=== PATIENT | male | born 1960 | race Caucasian/White ===

== ENCOUNTER 2016-09-11 09:46 | Inpatient (IN) | payer BC, MEDICARE ==
--- NOTE | ~2016-09-11 | CN ---
Consultation Report [facility] [address] [place]. [address] NAME: BRANDY ALMEIDA STEFAN : 60 STATUS : ADM IN PAT#: [id number] AGE: 55 ADM/REG DATE : 09/11/16 MR#: [id number] REPORT SERV DATE: 09/12/16 DICTATED BY: FAUSTO WANG DATE: 09/11/16 REPORT STATUS : Draft TRANSCRIBED BY: MODL DATE: 09/11/16 NEPHROLOGY CONSULT NOTE DATE OF CONSULTATION: HISTORY OF PRESENT ILLNESS: Mr. Almeida is a 55-year-old white male, diabetic for 30 plus years, admitted to the hospital now with unusual body movements, more of a tremor that started after dialysis on yesterday. Interestingly, last two weeks as he went up on , 09/02/2016 to [place] to have an osteochondroma removed from his right ear, was placed on clindamycin after the surgery and has done well. He still has some mild facial numbness on the right and still has very poor hearing on the right ear. Dialyzed at Tuesday in clinic 09/03/2016 and then he dialyzes on Tuesday, Tuesday, and Tuesday. Last week in this clinic, when had a balloon angioplasty of his left arm AV fistula at our access center. No general anesthesia. Then at dialysis on Tuesday, he felt well, drove himself there, had a good dialysis, went back home, and got home about 4 o'clock and shortly thereafter, started developing a tremor. The tremor initially thought was something he was doing, but it was uncontrollable and his started noticing it. He was tired enough after dialysis. He was able to lay down and fall asleep, but on Tuesday, he woke up with the tremors. His had felt him tremor all night, and they decided to come and have it evaluated. Two surgeries a week apart, one with general anesthesia, the other one with local this and his tremor started today after second procedure. His new medications are Cleocin, which he has taken for about eight days and ibuprofen which he started three days ago after he quit taking his hydrocodone 7.5/325, which he was taken three of four day, until that time. ALLERGIES: HE IS ALLERGIC TO LISINOPRIL, ALLERGIC TO AMLODIPINE. MEDICATIONS: His home medications are: DICTATION ENDS HERE SP/SHEELA Fausto Wang M.D. / [id number] CC: Lenny Bradley MD
--- NOTE | ~2016-09-11 | CN ---
Consultation Report [facility] [address] [place]. [address] NAME: BRANDY DAVIES STEFAN : 60 STATUS : ADM IN PAT#: [id number] AGE: 55 ADM/REG DATE : 09/11/16 MR#: [id number] REPORT SERV DATE: 09/12/16 DICTATED BY: FAUSTO WANG DATE: 09/11/16 REPORT STATUS : Draft TRANSCRIBED BY: MODAdia DATE: 09/11/16 DATE OF CONSULTATION: CONTINUATION HISTORY OF PRESENT ILLNESS: A 55-year-old end-stage renal disease patient of [facility] on Tuesday, Tuesday, Tuesday. Dialyzed Tuesday, drove himself home, felt some uncontrollable twitching in his both legs and arms, was tired enough that he was able to go to sleep, but this Tuesday morning woke up with continued twitching, came to the emergency room. 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 PAST MEDICAL HISTORY: Other significant past medical history is fracture of his heel in his left foot, which later became infected with MRSA, which prompted vancomycin therapy and ended up finishing off his kidneys, which he ended up on dialysis at that time. History of gastric bypass many years ago; kidney cancer with removal of half his left kidney in the past; bursitis of the elbows; vitrectomy on one eye and cataract surgery on both; appendectomy; stroke four years ago in December of 2012 in [place], [place]; MRSA of his left foot and his right ear in the past, treated with vancomycin both times; diabetes mellitus for 30 years, on insulin pump; and end-stage renal disease, which initiated on dialysis in September 2015, but developed a cloudy PD bag and had to switch from peritoneal dialysis to hemodialysis, attempted again in February of 2016, but then the port was removed and put back on hemodialysis towards the end of the year. REVIEW OF SYSTEMS: No fever or chills. Hearing loss on the right ear, which is chronic. No vomiting, but has been nauseated today. No diarrhea. His tremor which started about 4:00 p.m. central time on 09/10/2016 has persisted and no problems with hemodialysis. He has had no trouble with mentation, but right now, he feels he could not drive and could not walk because of his tremor. PHYSICAL EXAMINATION: VITAL SIGNS: Blood pressure 149/90, heart rate 87, respirations 27, and temperature afebrile. GENERAL: Alert and oriented x3. Good historian. His is at bedside confirming this. HEENT: Unremarkable except surgery on his right ear and decreased hearing on that side. NECK: Without bruits. CHEST: His lungs are clear. CARDIOVASCULAR: Without murmur, gallops, or rubs. ABDOMEN: Soft and benign. Bowel sounds are present. EXTREMITIES: Left upper arm AV fistula with good bruit and thrill, recently ballooned. Nonfocal neurological exam, but he is twitching with obvious uncontrollable tremor in both sides, right arm is not twitching as much as his left arm. He is twitching in his leg same Consultation Report [address] [place]. [address] NAME: BRANDY DAVIES : 60 STATUS : ADM IN [facility]#: [id number] AGE: 55 ADM/REG DATE : 09/11/16 MR#: [id number] REPORT SERV DATE: 09/12/16 DICTATED BY: FAUSTO WANG DATE: 09/11/16 REPORT STATUS : Draft TRANSCRIBED BY: SHEELA DATE: 09/11/16 time, when the twitch of his leg is more of an extension movement. LABORATORY DATA: Labs show sodium 142, potassium 3.9, chloride 101, CO2 31 with a BUN of 19, creatinine 4.7, and blood sugar 128. White count 6.9, hemoglobin 11, hematocrit 34, and platelet count 159,000. Calcium is 8.9. TSH 2.17 and CPK 103. ASSESSMENT: 1. Tremor, unlike seizure activity, medication related as most likely cause, although the only new medications Cleocin and ibuprofen and he quit taking narcotics three days ago, but this does not appear to be a withdrawal symptom. No altered mental status. No fever or chills. No neck stiffness. Left side is worse than the right, but both involved, both upper extremity and lower extremity. I have asked Neurology to see tonight and will be by to see him later. 2. End-stage renal disease, on vancomycin. Treated for methicillin-resistant Staphylococcus aureus in the past in which kidneys already damaged from hypertension and diabetes at that time. No recent vancomycin use. 3. History of gastric bypass in January 2004. 4. History of stroke and right arm weakness in 2012. 5. He had a right ear osteochondroma removed at [facility] on 09/02/2016, placed on Cleocin after that. He still has some Cleocin to take here. Numbness on his right side of his face since then, but very mild and he was warned that this might happen. 6. He has had coronary artery stent in the past, placed in 2008. 7. Left arm AV fistula with good bruit and thrill, ballooned on 09/09/2016 for stenosis. 8. Has diabetes mellitus times 30+ years, on insulin pump. The last three years, much better controlled. Last hemoglobin A1c 6.7. 9. Chronic hypertension. 10.See past medical history. PLAN: Valium was given in the emergency room with some improvement of muscle twitching, but he still felt like he was twitching, although he could not see his arm twitch. We will have Neurology evaluate and treat and admitted to my service. SP/SHEELA Fausto Wang M.D. / [id number] CC: Lenny Bradley MD
--- NOTE | ~2016-09-11 | CN ---
Consultation Report [facility] [address] [place]. [address] NAME: BRANDY DAVIES : 60 STATUS : ADM IN PAT#: [id number] AGE: 55 ADM/REG DATE : 09/11/16 MR#: [id number] REPORT SERV DATE: 09/12/16 DICTATED BY: DATE: REPORT STATUS : Draft TRANSCRIBED BY: MODL DATE: 09/11/16 NEUROLOGY CONSULTATION DATE OF CONSULTATION: 09/11/2016 REASON FOR CONSULT: Myoclonic jerk. HISTORY OF PRESENT ILLNESS: This is a 55-year-old male who presented to [facility] on 09/10/2016 secondary to acute onset of myoclonic jerk. Symptoms started acutely at 4 p.m., initially limited to the leg and then progressed to bilateral upper extremity and the entire body with the patient noted to have sporadic jerking of entire body at times. The patient denies any improving or relieving factors, reports symptoms appear to be worsened since onset since the patient was noted to have more generalized involvement, denies similar symptoms in the past. Denies any recent changes in medication and denies any recent illness, however, upon further questioning, the patient was noted to have a history of stress test as well as recent right ear canal debridement for infection. The patient recently had AV graft placed and placed on hemodialysis secondary to previous abdominal infection or a peritoneal abdominal infection from peritoneal dialysis. The patient again denies similar events in the past and denies any other changes in medication. FAMILY HISTORY: No family history of kidney disease was otherwise noted. No family history of seizure was reported. SOCIAL HISTORY: Denies tobacco, alcohol, recreational drug usage. ALLERGIES: THE PATIENT REPORTS ALLERGY TO LISINOPRIL, AMLODIPINE. CURRENT MEDICATIONS: The patient's current medications consists of Lipitor, B complex, folic acid, Cleocin, [place], Advil, NovoLog, Imdur, lidocaine, Bactroban, Prilosec, and Phenergan. REVIEW OF SYSTEMS: Review of systems negative except for those mentioned in the HPI. PHYSICAL EXAMINATION: VITAL SIGNS: Since the hospital stay, the patient was noted to have vital signs with T-max of 98.6, heart rate of 94 to 98, respirations of 18 to 20, and blood pressure of 154 to 172 over 63 to 91. GENERAL: The patient is well developed, well nourished, in no acute distress. CARDIOVASCULAR EXAMINATION: Regular rate and rhythm. No carotid bruits were otherwise auscultated. PULMONARY EXAMINATION: Clear to auscultation bilaterally. NEUROLOGICAL EXAMINATION: Generally, the patient is alert and oriented to person, place, year and month. He follows simple and two-step commands. Mild spastic language was noted at time of evaluation, otherwise no significant dysarthria was noted. No aphasia was Consultation Report [address] [place]. [address] NAME: BRANDY DAVIES : 60 STATUS : ADM IN PAT#: [id number] AGE: 55 ADM/REG DATE : 09/11/16 MR#: [id number] REPORT SERV DATE: 09/12/16 DICTATED BY: DATE: REPORT STATUS : Draft TRANSCRIBED BY: SHEELA DATE: 09/11/16 appreciated. Cranial nerves 2-12; pupils equal, round, and reactive to light. Extraocular eye movement was noted to be intact with intact blink to threat response, was noted to have symmetrical facial expression. Midline tongue. Normal palatal movement at the time of evaluation. The patient otherwise demonstrated 5/5 bilateral upper and lower extremity strength, was able to move extremities spontaneously. No significant cogwheel rigidity was seen. The patient, however, was noted to have brief episodes of a distractibility where patient was either performing tasks of getting out of bed or doing something else and was noted to have diminished or resolution of the jerking episodes. The patient, otherwise, reports symmetrical sensation bilaterally with the patient noted to have 2+ reflexes bilaterally, downgoing toe on bilateral plantar reflexes. Coordination: Normal gdypio-[id number] examination despite ongoing jerking with the patient able to stand up with minimal assistance, able to ambulate. Also, the patient persistently noted to have late jerks, the patient has not sustained any falls or near falls. LABORATORY STUDIES: Demonstrated chemistry panel: Sodium 142, potassium 3.9, chloride 101, bicarb of 31, BUN of 19, creatinine of 4.72, glucose of 128, calcium of 8.9. He was noted to have white blood cell count of 6.9, hemoglobin of 11.8, hematocrit of 34.6, and platelet count of 159. No neuro imaging was obtained during the current hospitalization. IMPRESSION: 1. Myoclonus with jerking episodes, waxing and waning in severity. Otherwise, the patient is able to maintain bilateral upper extremity postures at the time of evaluation. Concern for possible some components of distractibility on examination raises concern for possible psychogenic etiology. We will check laboratory study, MRI of the brain as well as C-spine. Meanwhile, we will continue Keppra 750 mg p.o. b.i.d. We will start the patient on Klonopin 0.5 mg p.o. b.i.d. RECOMMENDATION: 1. Klonopin 0.5 mg p.o. b.i.d. 2. Keppra 750 mg p.o. b.i.d. 3. MRI of the brain and C-spine without contrast. 4. We will check ammonia level, TSH with free T4, vitamin B12, sed rate, CRP, procalcitonin level with morning labs. [facility]L Elier Covarrubias MD Consultation Report [address] [address] NAME: BRANDY DAVIESN : 60 STATUS : ADM IN [facility]#: [id number] AGE: 55 ADM/REG DATE : 09/11/16 MR#: [id number] REPORT SERV DATE: 09/12/16 DICTATED BY: DATE: REPORT STATUS : Draft TRANSCRIBED BY: MODL DATE: 09/11/16 / [id number] CC: Lenny Bradley MD
[~2016-09-11 09:46] MED LIST: AMOXIL500C PO; ASAB PO; COREG25 PO; DIALYVITE PO; EPOGEN; GARAOPHOIN; GENTAMICIN 0.1% TOP; GLUCAGEN SC; IMDUR30 PO; LIPITOR10 PO; NOVLOGPUMP SC; PEPTO-BISMOL TA1 TAB PO; VANCO500 IV
[2016-09-11 10:59] LABS: BASOPHILS 0.3 %; BASOPHILS ABSOLUTE 0.02 10/3/uL (0.0-0.16); EOSINOPHILS 1.5 %; ER CBC TAT 0 Hrs 08 Mins; LYMPHOCYTES 17.4 %; MEAN CORPUS HGB CONC 34.1 g/dL (32.0-36.0); MEAN CORPUSCULAR HEMOGLOB 31.1 pg (26.0-34.0); MEAN CORPUSCULAR VOLUME 91.1 fL (80-100); MEAN PLATELET VOLUME 10.2 fL (9.2-13.0); MONOCYTES 5.1 %; MONOCYTES ABSOLUTE 0.35 10/3/uL (0.21-1.20); NEUTROPHILS 75.7 %; NEUTROPHILS ABSOLUTE 5.21 10/3/uL (2.02-8.40); RBC DISTRIBUTION WIDTH 13.7 % (12.0-16.0); WHITE BLOOD CELLS 6.9 10/3/uL (4.5-10.5)
[2016-09-11 11:01] LABS: HEMATOCRIT 34.6 % (40.0-51.0); HEMOGLOBIN 11.8 g/dL (13.6-17.8); MANUAL DIFF NO %; PLATELET COUNT 159 10/3/uL (150-400)
[2016-09-11 12:13] LABS: BUN (BLOOD UREA NITROGEN) 19 MG/DL (6-23); CALCIUM, SERUM 8.9 MG/DL (8.5-10.4); CHLORIDE, SERUM 101 MMOL/L (96-112); POTASSIUM, SERUM 3.9 MMOL/L (3.5-5.3); SODIUM, SERUM 142 MMOL/L (135-148)
[2016-09-11 12:26] LABS: CPK (IF ELEVATED MB BANDS) 103 U/L (0-200); SGOT(AST) 18 U/L (5-40); SGPT(ALT) 17 U/L (5-65); TOTAL BILIRUBIN 1.1 MG/DL (0-1.2)
[2016-09-11 12:27] LABS: A/G RATIO 1.1 (0.7-1.9); ALBUMIN 3.3 G/DL (3.5-5.0); ALKALINE PHOSPHATASE 225 U/L (45-117); CO2 (CARBON DIOXIDE) 31 MMOL/L (24-34); CREATININE 4.72 MG/DL (0.70-1.30); GFR AFRICAN AMERICAN 15 ML/MIN (>=60); GFR NON AFRICAN AMERICAN 13 ML/MIN (>=60); GLOBULIN 3.1 G/DL (2.5-4.1); GLUCOSE, SERUM 128 MG/DL (60-99); TOTAL PROTEIN 6.4 G/DL (6.0-8.5)
[2016-09-11] MEDS ORDERED: IMDUR30 PO (14:07)
[2016-09-11] MEDS ORDERED: DIALYVITE PO (14:07)
[2016-09-11] MEDS ORDERED: LIPITOR10 PO (14:07)
[2016-09-11] MEDS ORDERED: BACTROINT TOP (14:07)
[2016-09-11] MEDS ORDERED: PRILO PO (14:07)
[2016-09-11] MEDS ORDERED: PR12.5 PO (14:08)
[2016-09-11] MEDS ORDERED: CLEOCIN300 MG PO (14:08)
[2016-09-11] MEDS ORDERED: ADVIL PO (14:08)
[2016-09-11] MEDS ORDERED: NOVLOGPUMP SC (14:09)
[2016-09-11] MEDS ORDERED: NORCO1 TA2 PO (14:09)
[2016-09-11] MEDS ORDERED: EMLA TOP (14:10)
[2016-09-11 23:25] LABS: CPK 73 U/L (0-200); TROPONIN I <0.02 NG/ML (<0.05)
[2016-09-11 23:27] LABS: CK-MB 1.8 NG/ML
[2016-09-12 06:00] LABS: BASOPHILS 0.2 %; BASOPHILS ABSOLUTE 0.01 10/3/uL (0.0-0.16); EOSINOPHILS 0.2 %; EOSINOPHILS ABSOLUTE 0.01 10/3/uL (0.0-0.53); HEMATOCRIT 34.3 % (40.0-51.0); HEMOGLOBIN 12.1 g/dL (13.6-17.8); IMMATURE GRANULOCYTES 0.3 %; IMMATURE GRANULOCYTES ABSOLUTE 0.02 10/3/uL (0.0-0.11); MEAN CORPUS HGB CONC 35.3 g/dL (32.0-36.0); MEAN CORPUSCULAR HEMOGLOB 32.4 pg (26.0-34.0); MEAN CORPUSCULAR VOLUME 91.7 fL (80-100); MEAN PLATELET VOLUME 10.1 fL (9.2-13.0); MONOCYTES 1.4 %; MONOCYTES ABSOLUTE 0.08 10/3/uL (0.21-1.20); NEUTROPHILS 85.9 %; NEUTROPHILS ABSOLUTE 5.01 10/3/uL (2.02-8.40); PLATELET COUNT 151 10/3/uL (150-400); RBC DISTRIBUTION WIDTH 13.4 % (12.0-16.0); RED CELL COUNT 3.74 10/6/uL (4.7-6.1); WHITE BLOOD CELLS 5.8 10/3/uL (4.5-10.5)
[2016-09-12 06:17] LABS: MANUAL DIFF NO %
[2016-09-12 07:06] LABS: SED RATE 20 MM/HR (0-15)
[2016-09-12 07:43] LABS: PROCALCITONIN 0.23 ng/mL (<0.5)
[2016-09-12 08:09] LABS: CALCIUM, SERUM 8.8 MG/DL (8.5-10.4); CHLORIDE, SERUM 102 MMOL/L (96-112); CO2 (CARBON DIOXIDE) 27 MMOL/L (24-34); CPK 66 U/L (0-200); FREE T4 0.94 NG/DL (0.76-1.46); PHOSPHORUS, SERUM 4.1 MG/DL (2.5-4.5); POTASSIUM, SERUM 4.4 MMOL/L (3.5-5.3); SODIUM, SERUM 140 MMOL/L (135-148); TROPONIN I <0.02 NG/ML (<0.05)
[2016-09-12 08:10] LABS: BUN (BLOOD UREA NITROGEN) 31 MG/DL (6-23); C-REACTIVE PROTEIN < 2.9 MG/L (<8.0); CK-MB 2.1 NG/ML; CREATININE 5.99 MG/DL (0.70-1.30); FOLATE 24.2 NG/ML (>5.2); GFR AFRICAN AMERICAN 11 ML/MIN (>=60); GFR NON AFRICAN AMERICAN 10 ML/MIN (>=60); GLUCOSE, SERUM 155 MG/DL (60-99)
[2016-09-13 11:57] LABS: BASOPHILS 0.3 %; BASOPHILS ABSOLUTE 0.02 10/3/uL (0.0-0.16); EOSINOPHILS 1.4 %; EOSINOPHILS ABSOLUTE 0.09 10/3/uL (0.0-0.53); HEMOGLOBIN 10.4 g/dL (13.6-17.8); IMMATURE GRANULOCYTES 0.2 %; IMMATURE GRANULOCYTES ABSOLUTE 0.01 10/3/uL (0.0-0.11); LYMPHOCYTES 22.2 %; LYMPHOCYTES ABSOLUTE 1.46 10/3/uL (0.67-4.30); MEAN CORPUSCULAR HEMOGLOB 31.5 pg (26.0-34.0); MEAN PLATELET VOLUME 10.4 fL (9.2-13.0); MONOCYTES 6.1 %; NEUTROPHILS 69.8 %; PLATELET COUNT 134 10/3/uL (150-400); RBC DISTRIBUTION WIDTH 13.7 % (12.0-16.0); WHITE BLOOD CELLS 6.6 10/3/uL (4.5-10.5)
[2016-09-13 11:58] LABS: HEMATOCRIT 29.7 % (40.0-51.0); MANUAL DIFF NO %
[2016-09-13 12:09] LABS: ALBUMIN 3.1 G/DL (3.5-5.0); CALCIUM, SERUM 8.1 MG/DL (8.5-10.4); CHLORIDE, SERUM 102 MMOL/L (96-112); CO2 (CARBON DIOXIDE) 26 MMOL/L (24-34); PHOSPHORUS, SERUM 3.7 MG/DL (2.5-4.5); SODIUM, SERUM 138 MMOL/L (135-148)
[2016-09-13 12:11] LABS: BUN (BLOOD UREA NITROGEN) 51 MG/DL (6-23); CREATININE 7.05 MG/DL (0.70-1.30); GFR AFRICAN AMERICAN 9 ML/MIN (>=60); GFR NON AFRICAN AMERICAN 8 ML/MIN (>=60); GLUCOSE, SERUM 250 MG/DL (60-99)
[2016-09-13 13:36] LABS: HEMOGLOBIN 8.4 g/dL (13.6-17.8); MEAN CORPUS HGB CONC 33.5 g/dL (32.0-36.0); MEAN CORPUSCULAR HEMOGLOB 30.9 pg (26.0-34.0); MEAN CORPUSCULAR VOLUME 92.3 fL (80-100); MEAN PLATELET VOLUME 10.4 fL (9.2-13.0); RBC DISTRIBUTION WIDTH 12.4 % (12.0-16.0); RED CELL COUNT 2.72 10/6/uL (4.7-6.1)
[2016-09-13 13:40] LABS: HEMATOCRIT 25.1 % (40.0-51.0); MANUAL DIFF YES %; PLATELET COUNT 225 10/3/uL (150-400); WHITE BLOOD CELLS 13.8 10/3/uL (4.5-10.5)
[2016-09-13 15:03] LABS: LYMPHOCYTES 1 %; LYMPHOCYTES ABSOLUTE (CALC) 0.14 10/3/uL (0.67-4.30); NEUTROPHILS ABSOLUTE (CALC) 13.66 10/3/uL (2.02-8.40); PLATELET ESTIMATE ADQ (ADEQUATE); SEGMENTED NEUTROPHIL (0) 99 %; TOTAL NUCLEATED CELLS 100
[2016-09-13 15:04] LABS: RBC MORPHOLOGY NORM (NORMAL)
[2017-01-05] MEDS ORDERED: VITAMIN B-121000 MC1 SL (16:21)
[2017-01-05] MEDS ORDERED: LIPITOR10 PO (16:21)
[2017-01-05] MEDS ORDERED: IMDUR30 PO (16:21)
[2017-01-05] MEDS ORDERED: EMLA TOP (16:22)
[2017-01-05] MEDS ORDERED: NOVLOGPUMP SC (16:22)
[2017-01-05] MEDS ORDERED: PRILO PO (16:23)
[2017-01-05] MEDS ORDERED: DIALYVITE PO (16:26)
[2017-01-05] MEDS ORDERED: CALCIUM CARBONATE 1000 MG PO (16:26)
[2017-04-07] MEDS ORDERED: PLAVIX PO (13:50)
[2017-04-07] MEDS ORDERED: ASAB PO (13:51)
== END 2016-09-13 17:23 | disposition home or self-care (01) | DRG 91 ==
LOC: ER 09:46 → 2SO 15:00
PROVIDERS: Hospitalist; Internal Medicine Nephrology; Nurse Practitioner
PROC: 5A1D60Z (ICD-10-PCS; principal; 2016-09-13)
DX: G25.3 Myoclonus (principal); N18.6 End stage renal disease; I12.0 Hypertensive chronic kidney disease with stage 5 chronic kidney disease or end stage renal disease; E11.22 Type 2 diabetes mellitus with diabetic chronic kidney disease; I25.10 Atherosclerotic heart disease of native coronary artery without angina pectoris; Z96.41 Presence of insulin pump (external) (internal); E53.8 Deficiency of other specified B group vitamins; Z99.2 Dependence on renal dialysis; Z86.14 Personal history of Methicillin resistant Staphylococcus aureus infection; Z98.84 Bariatric surgery status; Z85.528 Personal history of other malignant neoplasm of kidney; Z86.73 Personal history of transient ischemic attack (TIA), and cerebral infarction without residual deficits; Z95.5 Presence of coronary angioplasty implant and graft; T42.4X5A Adverse effect of benzodiazepines, initial encounter; Y92.230 Patient room in hospital as the place of occurrence of the external cause
CPT/HCPCS: 70551; 72141; 80053; 80069; 82140; 82550; 82553; 82607; 82746; 82962; 83735; 84145; 84425; 84439; 84443; 84484; 85025; 85652; 86140; 93005; 96374; 99285; A9270-GY; G0257; J1200; J1953; J2920; J3360

== ENCOUNTER 2017-01-05 16:35 | Inpatient (IN) | payer BC, MEDICARE ==
--- NOTE | ~2017-01-05 | HP ---
History And Physical [facility] [address] [place]. [address] NAME: BRANDY DAVIES STEFAN : 60 STATUS : ADM IN PAT#: [id number] AGE: 56 ADM/REG DATE : 01/05/17 MR#: [id number] REPORT SERV DATE: 01/06/17 DICTATED BY: EYAD RICHARDSON DATE: 01/05/17 REPORT STATUS : Draft TRANSCRIBED BY: MODL DATE: 01/05/17 DATE OF ADMISSION: 01/05/2017 NEPHROLOGY ADMISSION CHIEF COMPLAINT: Chest pain. HISTORY OF PRESENT ILLNESS: The patient is a 56-year-old white male with significant past medical history of end-stage renal disease, CVA (approximately four years ago), 30-year history of insulin-dependent diabetes, ASCVD with stent in (2008) presented with an acute onset of left-sided chest pain. The patient was getting ready for dialysis and approximately left at 11:45. He had acute onset of substernal chest pain with nausea, diaphoresis, and radiation to the left arm. The patient described the pain as 8/10 with pressure and tightness. He received nitro paste, and by the time, he presented to the ER within two hours the chest pain had gotten down 2/10. The patient still has chest tightness throughout his chest. He denies any fevers, cough, hemoptysis, hematemesis, or bright red blood per rectum. The patient is also noted to have a history of diabetes for over 30 years, on an insulin pump. Diabetic retinopathy and he follows with Dr. Hills with complications. He knows that he has had bleeding in his left eye and most recently diagnosed. He has had vitrectomy. Additional past medical history is that he had a stress test in March 2016 and a cath in April 2016 which the patient describes as minor disease. He is on ISMN. He is on CHRISTIANNE inhibitor due to allergy. He is on a beta veronica. He denies any history of bradycardia. PAST MEDICAL/PAST SURGICAL HISTORY: 1. End-stage renal disease, insulin-dependent diabetes, for over 30 years. Stroke approximately four years ago that has resolved. Left facial weakness and right arm weakness. 2. Elbow bursitis. 3. Cholecystectomy. 4. Cataract surgery. 5. Gastric bypass. 6. Diabetic foot ulcers. No active issues. He has had skin graft to his foot. 7. Right ear . 8. Fistulogram since July 2016 and August 2016. SOCIAL HISTORY: No tobacco, alcohol or drugs. FAMILY MEDICAL HISTORY: No known kidney disease. ALLERGIES: INCLUDE LISINOPRIL, AMLODIPINE, KEPPRA, KLONOPIN, OMNIPRESS ?. MEDICATIONS: 1. Insulin pump. 2. Dialyvite. History And Physical [address] [address] NAME: BRANDY DAVIES : 60 STATUS : ADM IN PAT#: [id number] AGE: 56 ADM/REG DATE : 01/05/17 MR#: [id number] REPORT SERV DATE: 01/06/17 DICTATED BY: EYAD RICHARDSON DATE: 01/05/17 REPORT STATUS : Draft TRANSCRIBED BY: SHEELA DATE: 01/05/17 3. Lipitor 10 mg. 4. ISMN. REVIEW OF SYSTEMS: Complete review of systems done. Negative, otherwise stated in the HPI. PHYSICAL EXAMINATION: VITAL SIGNS: Temperature 98, pulse is in the 60s to 90s, blood pressure 150s to 170s over 80s to 100s. GENERAL: He is overweight. No apparent distress. NEUROLOGIC: He is alert and oriented x3. Gross motor of his extremities is intact. SKIN: No petechiae or purpura. Dry intact. HEENT: Normocephalic. Pupils are equal. No scleral icterus. NECK: No JVP. Trachea is midline. No lymphadenopathy. CARDIOVASCULAR: He has regular rate and rhythm. No gallops, rubs, or murmurs. RESPIRATORY: He is clear to auscultation bilaterally without an increased respiratory rate. ABDOMEN: Soft, nontender, nondistended. Positive bowel sounds. EXTREMITIES: No peripheral edema. STUDIES: Chest x-ray, no infiltrates or effusions. ASSESSMENT: 1. Left-sided chest pain with past medical history of end-stage renal disease, insulin- dependent diabetes, hyperlipidemia, hypertension, cerebrovascular accident and atherosclerotic cardiovascular disease x1. He also has a history of gastric bypass. 2. Insulin-dependent diabetes. 3. Hypertension. 4. History of diabetic retinopathy with "bleeding .". 5. History of cerebrovascular accident with approximately four years ago with residual left facial weakness and right arm weakness. 6. End-stage renal disease. PLAN: 1. We will consult Cardiology. 2. Aspirin. 3. Heparin (?). The patient does have a history of left eye. 4. Plavix (?). 5. Nitro. 6. Beta veronica. 7. Serial enzymes and EKGs. 8. The patient is known to have allergy to CHRISTIANNE inhibitor. 9. Hemodialysis tomorrow. 10.Home medications and p.r.n. medications. [facility] History And Physical [address] [address] NAME: BRANDY DAVIES STEFAN : 60 STATUS : ADM IN PAT#: [id number] AGE: 56 ADM/REG DATE : 01/05/17 MR#: [id number] REPORT SERV DATE: 01/06/17 DICTATED BY: EYAD RICHARDSON DATE: 01/05/17 REPORT STATUS : Draft TRANSCRIBED BY: SHEELA DATE: 01/05/17 Eyad Richardson M.D. / [id number] CC: Lenny Ramirez M.D.
--- NOTE | ~2017-01-05 | CN ---
Consultation Report [facility] [address] [place]. [address] NAME: BRANDY ALMEIDA STEFAN : 60 STATUS : ADM IN [facility]#: [id number] AGE: 56 ADM/REG DATE : 01/05/17 MR#: [id number] REPORT SERV DATE: 01/06/17 DICTATED BY: JUAN C OLIVEIRA DATE: 01/05/17 REPORT STATUS : Draft TRANSCRIBED BY: MODL DATE: 01/05/17 CARDIOVASCULAR CONSULTATION DATE OF CONSULTATION: 01/05/2017 CHIEF COMPLAINT: Chest pain, unstable angina. This is a cardiovascular consultation requested by Eyad Richardson M.D. HISTORY OF PRESENT ILLNESS: Mr. Almeida is a 56-year-old man with history of end-stage renal disease, on hemodialysis. He has a longstanding history of type 1 diabetes for about 30 years. He has a history of a stroke with mild residual several years ago. He underwent cardiac catheterization in 2015 at [place] for listing for renal transplantation. According to the patient, this showed branch vessel coronary artery disease with medical management recommended. The patient reports having his coronary stent placed in approximately 2003 although details are unclear. The patient developed left-sided chest pain around 11 o'clock this morning as he was preparing for hemodialysis. He had some diaphoresis associated with nausea, vomiting, and some abdominal discomfort. He presented to the [facility] Emergency Room this evening with similar complaints and ongoing 2/10 chest discomfort. PAST MEDICAL HISTORY: 1. End-stage renal disease. 2. Longstanding type 1 diabetes. 3. History of stroke with minimal residual. 4. Gastric bypass surgery. 5. Hypertension. 6. Hypercholesterolemia. 7. History of retinopathy, diabetic. SOCIAL HISTORY: He does not smoke or drink alcohol. FAMILY HISTORY: There is no family history of early coronary artery disease. REVIEW OF SYSTEMS: A complete review of systems was obtained, which is negative in detail except as mentioned above in the HPI. ALLERGIES: LISINOPRIL AND AMLODIPINE CAUSING SWELLING, KEPPRA, AND KLONOPIN. MEDICATIONS: On admission include atorvastatin 10 mg daily, multivitamin, calcium carbonate, insulin, isosorbide mononitrate 30 mg once a day, lidocaine cream, and Prilosec 20 mg daily. Consultation Report [facility] [address] [place]. [address] NAME: BRANDY ALMEIDA STEFAN : 60 STATUS : ADM IN PAT#: [id number] AGE: 56 ADM/REG DATE : 01/05/17 MR#: [id number] REPORT SERV DATE: 01/06/17 DICTATED BY: JUAN C OLIVEIRA DATE: 01/05/17 REPORT STATUS : Draft TRANSCRIBED BY: SHEELA DATE: 01/05/17 PHYSICAL EXAMINATION: VITAL SIGNS: Blood pressure 160/90, heart rate of 90, respiratory rate of 14. GENERAL: Comfortable in no acute distress. HEENT: Anicteric. No xanthelasma. Lips without cyanosis. NECK: No JVD. Carotids 2+ and symmetric. No carotid bruits. LUNGS: CTA bilaterally. No wheezes or rhonchi. No accessory muscle use. COR: RRR. Normally placed PMI. Normal S1 and S2. No murmurs, rubs or gallops. ABD: Soft, nontender, nondistended. Normal bowel sounds. No abdominal bruits. EXT: No clubbing, cyanosis or edema 2+ and symmetric distal pulses. SKIN: Warm. Dry. No venous stasis changes. MS: No kyphosis. NEURO/PSYCH: Oriented x3. No anxiety or depression. LABORATORY STUDIES: White count of 5.7, hematocrit of 29, creatinine of 6, and troponin of less than 0.02. EKG: A 12-lead EKG shows sinus rhythm at 94 beats per minute. Nonspecific T-wave abnormalities are noted. Borderline inferior Q-waves noted. IMPRESSION: This is a 56-year-old man with a longstanding history of type 1 diabetes, complicated by retinopathy and end-stage renal disease, on hemodialysis. He presents with a good story for chest pain, midsternal precordial radiating to his left arm. His initial cardiac enzymes are negative. His EKG shows no definite ischemia, but given his risk factors, and ongoing pain I am concerned this may in fact be consistent with unstable angina. I have recommended inpatient admission with plans for cardiac catheterization and possible percutaneous coronary intervention tomorrow. I explained the risks and benefits of this procedure to the patient who understands and wishes to proceed. DARA/SHEELA Juan C Oliveira M.D. / [id number] CC: Lenny Ramirez M.D.
[2017-01-05 16:18] LABS: BASOPHILS 0.4 %; BASOPHILS ABSOLUTE 0.02 10/3/uL (0.0-0.16); EOSINOPHILS 1.1 %; EOSINOPHILS ABSOLUTE 0.06 10/3/uL (0.0-0.53); HEMOGLOBIN 9.9 g/dL (13.6-17.8); IMMATURE GRANULOCYTES 0.2 %; IMMATURE GRANULOCYTES ABSOLUTE 0.01 10/3/uL (0.0-0.11); LYMPHOCYTES 18.2 %; LYMPHOCYTES ABSOLUTE 1.03 10/3/uL (0.67-4.30); MEAN CORPUS HGB CONC 34.4 g/dL (32.0-36.0); MEAN CORPUSCULAR HEMOGLOB 32.8 pg (26.0-34.0); MEAN PLATELET VOLUME 10.6 fL (9.2-13.0); MONOCYTES 5.8 %; MONOCYTES ABSOLUTE 0.33 10/3/uL (0.21-1.20); NEUTROPHILS 74.3 %; NEUTROPHILS ABSOLUTE 4.21 10/3/uL (2.02-8.40); RBC DISTRIBUTION WIDTH 13.3 % (12.0-16.0); RED CELL COUNT 3.02 10/6/uL (4.7-6.1)
[2017-01-05 16:19] LABS: ER CBC TAT 0 Hrs 08 Mins; HEMATOCRIT 28.8 % (40.0-51.0); MANUAL DIFF NO %; MEAN CORPUSCULAR VOLUME 95.4 fL (80-100); PLATELET COUNT 140 10/3/uL (150-400); WHITE BLOOD CELLS 5.7 10/3/uL (4.5-10.5)
[2017-01-05 16:26] LABS: INTERNATIONAL NORMAL RATI 1.1 UNITS (-); PARTIAL THROMBO TIME 26.6 SEC (22.5-37.2); PROTIME (NOT ORD) 14.4 SEC (12.0-14.5)
[~2017-01-05 16:35] MED LIST changes: +ADVIL PO; +BACTROINT TOP; +CALCIUM CARBONATE 1000 MG PO; +CLEOCIN300 MG PO; +EMLA TOP; +NORCO1 TA2 PO; +PR12.5 PO; +PRILO PO; +VITAMIN B-121000 MC1 SL
[2017-01-05 16:38] LABS: CALCIUM, SERUM 7.9 MG/DL (8.5-10.4); CHEST PAIN PROFILE TAT 0 Hrs 27 Mins; CHLORIDE, SERUM 112 MMOL/L (96-112); CO2 (CARBON DIOXIDE) 26 MMOL/L (24-34); GFR AFRICAN AMERICAN 11 ML/MIN (>=60); GFR NON AFRICAN AMERICAN 10 ML/MIN (>=60); GLUCOSE, SERUM 243 MG/DL (60-99); POTASSIUM, SERUM 4.3 MMOL/L (3.5-5.3); SODIUM, SERUM 144 MMOL/L (135-148); TROPONIN I <0.02 NG/ML (<0.05)
[2017-01-05 16:41] LABS: BUN (BLOOD UREA NITROGEN) 44 MG/DL (6-23)
[2017-01-06 01:08] LABS: CK-MB 3.9 NG/ML; CPK 145 U/L (0-200)
[2017-01-06 05:08] LABS: BASOPHILS 0.2 %; BASOPHILS ABSOLUTE 0.01 10/3/uL (0.0-0.16); EOSINOPHILS 1.9 %; EOSINOPHILS ABSOLUTE 0.09 10/3/uL (0.0-0.53); HEMATOCRIT 26.9 % (40.0-51.0); HEMOGLOBIN 9.1 g/dL (13.6-17.8); LYMPHOCYTES 19.7 %; LYMPHOCYTES ABSOLUTE 0.95 10/3/uL (0.67-4.30); MEAN CORPUS HGB CONC 33.8 g/dL (32.0-36.0); MEAN CORPUSCULAR HEMOGLOB 32.4 pg (26.0-34.0); MEAN CORPUSCULAR VOLUME 95.7 fL (80-100); MEAN PLATELET VOLUME 10.3 fL (9.2-13.0); MONOCYTES 7.1 %; MONOCYTES ABSOLUTE 0.34 10/3/uL (0.21-1.20); NEUTROPHILS 71.1 %; NEUTROPHILS ABSOLUTE 3.43 10/3/uL (2.02-8.40); PLATELET COUNT 123 10/3/uL (150-400); RBC DISTRIBUTION WIDTH 12.9 % (12.0-16.0); RED CELL COUNT 2.81 10/6/uL (4.7-6.1); WHITE BLOOD CELLS 4.8 10/3/uL (4.5-10.5)
[2017-01-06 05:11] LABS: MANUAL DIFF NO %
[2017-01-06 05:12] LABS: INTERNATIONAL NORMAL RATI 1.2 UNITS (-); PROTIME (NOT ORD) 15.1 SEC (12.0-14.5)
[2017-01-06 05:20] LABS: A/G RATIO 1.2 (0.7-1.9); ALBUMIN 2.7 G/DL (3.5-5.0); ALKALINE PHOSPHATASE 224 U/L (45-117); CALCIUM, SERUM 7.7 MG/DL (8.5-10.4); CHLORIDE, SERUM 112 MMOL/L (96-112); CO2 (CARBON DIOXIDE) 26 MMOL/L (24-34); CREATININE 6.27 MG/DL (0.70-1.30); GFR AFRICAN AMERICAN 11 ML/MIN (>=60); GFR NON AFRICAN AMERICAN 9 ML/MIN (>=60); HDL CHOLESTEROL 24 MG/DL (> 39); PHOSPHORUS, SERUM 3.5 MG/DL (2.5-4.5); POTASSIUM, SERUM 3.9 MMOL/L (3.5-5.3); SGOT(AST) 15 U/L (5-40); SGPT(ALT) 17 U/L (5-65); SODIUM, SERUM 145 MMOL/L (135-148); TOTAL BILIRUBIN 1.4 MG/DL (0-1.2); TRIGLYCERIDE 78 MG/DL (< 150)
[2017-01-06 05:29] LABS: BUN (BLOOD UREA NITROGEN) 48 MG/DL (6-23); CHOL/HDL RATIO(NOT ORDER) 2.1 (0-5); CHOLESTEROL < 50 MG/DL (< 200); GLOBULIN 2.3 G/DL (2.5-4.1); GLUCOSE, SERUM 193 MG/DL (60-99); LDL CHOLESTEROL 10.99999 MG/DL (< 130); NON-HDL CHOLESTEROL 26 MG/DL (< 160)
[2017-01-06 06:24] LABS: TROPONIN I <0.02 NG/ML (<0.05)
[2017-01-06 06:24] LABS: TROPONIN I <0.02 NG/ML (<0.05)
[2017-01-06 08:34] LABS: TROPONIN I 0.02 NG/ML (<0.05)
[2017-01-06 08:35] LABS: CK-MB 3.2 NG/ML; CPK 120 U/L (0-200)
[2017-01-07 07:26] LABS: BASOPHILS 0.4 %; BASOPHILS ABSOLUTE 0.02 10/3/uL (0.0-0.16); EOSINOPHILS 1.8 %; HEMATOCRIT 28.9 % (40.0-51.0); HEMOGLOBIN 9.9 g/dL (13.6-17.8); LYMPHOCYTES 22.3 %; LYMPHOCYTES ABSOLUTE 1.23 10/3/uL (0.67-4.30); MEAN CORPUS HGB CONC 34.3 g/dL (32.0-36.0); MEAN CORPUSCULAR HEMOGLOB 32.5 pg (26.0-34.0); MEAN CORPUSCULAR VOLUME 94.8 fL (80-100); MEAN PLATELET VOLUME 10.2 fL (9.2-13.0); MONOCYTES 6.5 %; MONOCYTES ABSOLUTE 0.36 10/3/uL (0.21-1.20); PLATELET COUNT 138 10/3/uL (150-400); RBC DISTRIBUTION WIDTH 13.1 % (12.0-16.0); RED CELL COUNT 3.05 10/6/uL (4.7-6.1); WHITE BLOOD CELLS 5.5 10/3/uL (4.5-10.5)
[2017-01-07 07:27] LABS: MANUAL DIFF NO %
[2017-01-07 07:38] LABS: CALCIUM, SERUM 7.8 MG/DL (8.5-10.4); CHLORIDE, SERUM 106 MMOL/L (96-112); CO2 (CARBON DIOXIDE) 28 MMOL/L (24-34); GFR AFRICAN AMERICAN 13 ML/MIN (>=60); GFR NON AFRICAN AMERICAN 11 ML/MIN (>=60); GLUCOSE, SERUM 196 MG/DL (60-99); POTASSIUM, SERUM 3.9 MMOL/L (3.5-5.3); SODIUM, SERUM 142 MMOL/L (135-148)
[2017-01-07 07:40] LABS: BUN (BLOOD UREA NITROGEN) 40 MG/DL (6-23); CREATININE 5.34 MG/DL (0.70-1.30)
[2017-01-07 12:07] LABS: CPK 109 U/L (0-200); TROPONIN I <0.02 NG/ML (<0.05)
[2017-01-07 12:19] LABS: CK-MB 2.4 NG/ML
[2017-01-07] MEDS ORDERED: COREG6 PO (15:23)
[2017-01-07] MEDS ORDERED: FOLIC PO (15:24)
[2017-04-07] MEDS ORDERED: PLAVIX PO (13:50)
[2017-04-07] MEDS ORDERED: ASAB PO (13:51)
== END 2017-01-07 16:41 | disposition home or self-care (01) | DRG 286 ==
LOC: ER 16:35 → CDU1 18:22 → 1SO 01-06 20:35
PROVIDERS: Emergency Medicine; Internal Medicine; Internal Medicine Cardiovascular Disease
PROC: B2111ZZ Fluoroscopy of Multiple Coronary Arteries using Low Osmolar Contrast (ICD-10-PCS; principal; 2017-01-06)
PROC: B2151ZZ Fluoroscopy of Left Heart using Low Osmolar Contrast (ICD-10-PCS; 2017-01-06)
PROC: 4A023N7 Measurement of Cardiac Sampling and Pressure, Left Heart, Percutaneous Approach (ICD-10-PCS; 2017-01-06)
PROC: 5A1D60Z (ICD-10-PCS; 2017-01-06)
DX: I25.110 Atherosclerotic heart disease of native coronary artery with unstable angina pectoris (principal); N18.6 End stage renal disease; J90 Pleural effusion, not elsewhere classified; I12.0 Hypertensive chronic kidney disease with stage 5 chronic kidney disease or end stage renal disease; I69.351 Hemiplegia and hemiparesis following cerebral infarction affecting right dominant side; E10.22 Type 1 diabetes mellitus with diabetic chronic kidney disease; I69.392 Facial weakness following cerebral infarction; E78.5 Hyperlipidemia, unspecified; Z99.2 Dependence on renal dialysis; E10.319 Type 1 diabetes mellitus with unspecified diabetic retinopathy without macular edema; Z79.4 Long term (current) use of insulin; Z79.899 Other long term (current) drug therapy; Z98.61 Coronary angioplasty status; Z98.84 Bariatric surgery status; Z88.8 Allergy status to other drugs, medicaments and biological substances
CPT/HCPCS: 71010; 71275; 80048; 80053; 80061; 80069; 82550; 82553; 82962; 83735; 83880; 84484; 85025; 85610; 85730; 93005; 93306; 93458; 99152; 99285; A9270-GY; C1769; C1887; C1894; G0257; J0360; J2250; J3010; Q9967